=== PATIENT | male | born 2000 | race African-American/Black ===

== ENCOUNTER 2023-03-16 07:37 | Emergency (ER) | payer OTHER, BC, SELFPAY ==
--- NOTE | ~2023-03-16 | XR_ITS ---
XR wrist LT min 3V 03/16/2023 08:26 Indication: Wrist pain Procedure: 4 views left wrist Comparison: No prior studies for comparison. Findings: There is a possible subacute/chronic nondisplaced scaphoid fracture with sclerotic margins. No soft tissue abnormality. No foreign bodies. Impression: 1: Possible subacute/chronic nondisplaced scaphoid waist fracture. Consider correlation with MRI. Reviewed, dictated and finalized at location A. LLIGENCE CLERK Impression: 1: Possible subacute/chronic nondisplaced scaphoid waist fracture. Consider cor relation with MRI.
[2023-03-16 07:40] VITALS: BP 146/89; PULSE 80; RESP 16; TEMP 36.4; O2SAT 98
--- NOTE | 2023-03-16 09:20 | ED.UPPEXIN ---
HPI - Extremity Injury (Upper) General Chief Complaint: Extremity Injury, Upper Stated Complaint: left hand pain Time Seen by Provider: 03/16/23 07:41 History of Present Illness HPI narrative: 22-year-old male presenting to the emergency department for evaluation persistent left wrist pain. Patient reports he was at work a few months ago when he felt a pop in his left wrist. Patient has had follow-up with occupational health and also had follow up with another physician. patient was concerned because he is still having persistent pain in the left wrist. One of the physicians told him that he had carpal tunnel syndrome and another physician told he did not have carpal tunnel syndrome but no explanation for the patient's symptoms were identified. Patient presented to [facility] for a 3rd opinion. Related Data Allergies Allergy/AdvReac Type Severity Reaction Status Date / Time No Known Allergies Allergy Verified 03/16/23 07:52 Review of Systems Review of Systems: All systems reviewed & are unremarkable except as noted in HPI and below Exam Narrative: APPEARANCE: Well appearing, no pain, no distress, well-nourished. HEAD: normocephalic, atraumatic. EYES: PERRLA/EOMI, conjunctivae clear. NOSE: Normal no drainage EARS:TMS clear with good light reflex. THROAT: Pharynx clear, no exudate. NECK: Supple. No adenopathy, no masses. RESPIRATORY: Airway patent, respirations nonlabored. Clear to auscultation bilaterally, no rales, rhonchi, wheezing. CARDIOVASCULAR: Regular rate and rhythm without murmurs rubs or gallops. ABDOMINAL: Soft, nontender, nondistended, normal bowel sounds MUSCULOSKELETAL: tenderness to left wrist, neurovascularly intact NEURO: Alert. Cranial nerves II through XII intact. Grossly intact Course Course Emergency Course: 22-year-old male presents emergency department for evaluation of persistent left wrist pain. X-rays taken today were concerning for scaphoid fracture. Patient family were updated on results of the imaging. Patient was encouraged of close follow-up with his primary care physician and to have an outpatient MRI. All questions and concerns were addressed and they are comfortable with plan for discharge and further outpatient workup. Vital Signs Vital signs: Vital Signs Temperature 97.6 F 03/16/23 07:40 Pulse Rate 80 03/16/23 07:40 Respiratory Rate 16 03/16/23 07:40 Blood Pressure 146/89 H 03/16/23 07:40 Pulse Oximetry 98 03/16/23 07:40 Oxygen Delivery Room Air 03/16/23 07:40 Temperature 97.6 F 03/16/23 07:40 Pulse Rate 75 03/16/23 09:38 Respiratory Rate 18 03/16/23 09:38 Blood Pressure 144/89 H 03/16/23 09:38 Pulse Oximetry 98 03/16/23 09:38 Oxygen Delivery Room Air 03/16/23 07:40 MDM - Extremity Injury (Upper) Imaging Data Radiologist's impression: Impressions Wrist X-Ray 03/16/23 08:31 Impression: 1: Possible subacute/chronic nondisplaced scaphoid waist fracture. Consider correlation with MRI. Discharge Plan Discharge Clinical Impression: Acute wrist pain Patient Disposition: Home, Self-Care Condition: Stable Instructions: Antibiotic Form Additional Instructions: continue to wear your brace for comfort. Your x-ray shows possible subacute/chronic nondisplaced scaphoid waist fracture. radiology recommended an MRI for further workup. Have close follow-up with your primary care physician or Work Comp to have the MRI scheduled. If you need to follow-up with another orthopedic physician have close follow-up with Dr. Ttutle. Follow-up/Referrals: Wing Tuttle MD [Physician] - PHYSICIAN,DIRECTOR AUTOMOTIVE [Primary Care Provider] - Stand Alone Forms: Work/School Release IP
[2023-03-16 09:38] VITALS: BP 144/89; PULSE 75; RESP 18; O2SAT 98
== END 2023-03-16 09:39 | disposition home or self-care (01) ==
PROVIDERS: Emergency Provider Emergency Medicine
DX: M25.532 Pain in left wrist (principal); R93.6 Abnormal findings on diagnostic imaging of limbs
CPT/HCPCS: 73110; 99283

== ENCOUNTER 2023-04-22 13:07 | Outpatient (CLI) | payer OTHER, SELFPAY ==
--- NOTE | ~2023-04-22 | MR_ITS ---
MRI of the left wrist Technique: Coronal T1 weighted and proton density fat sat images, and axial and sagittal proton-densi ty and proton-density fat-sat images were acquired. Clinical History: Pain Findings: Scapholunate ligament is intact, and there is no widening of the scapholunate interval. Ariel otriquetral ligament is intact. TFCC is intact. Bone marrow signals are unremarkable. Joint spaces are preserved. No significant joint effusion or sy novitis. There is a 6 mm ganglion cyst just volar to the scaphoid (sagittal image 23, coronal image 1 0). Extensor tendons are intact. Flexor tendons of the carpal tunnel intact. No other mass lesion or flui d collection seen. IMPRESSION: 6 mm ganglion cyst along the volar aspect of the scaphoid. No other significant findings. Reviewed, dictated and finalized at [facility]. DEPARTMENT BATTALION CHIEF
== END 2023-04-22 13:08 | disposition home or self-care (01) ==
PROVIDERS: Visit Provider Orthopaedic Surgery
DX: M25.532 Pain in left wrist (principal)
CPT/HCPCS: 73221

== ENCOUNTER 2024-04-18 08:13 | Emergency (ER) | payer SELFPAY ==
[2024-04-18] VITALS (9 sets, daily range): BP systolic 103–142; BP diastolic 54–93; PULSE 76–82; RESP 14–16; TEMP 36.5–36.7; O2SAT 98–100
--- NOTE | ~2024-04-18 | CT_ITS ---
CLINICAL INDICATION: Epigastric pain and vomiting COMPARISON: None. TECHNIQUE: Multiple contiguous axial images of the abdomen and pelvis were performed following the ad ministration of with 100 mL Omnipaque-350 intravenous contrast The dose-length product (DLP) was 359.43 mGy-cm. Automated exposure control and iterative reconstruction technique were employed. FINDINGS/OBSERVATIONS: Visualized lower thorax: The bilateral lung bases are clear. The heart is of normal size, without pericardial effusion. Liver: The liver enhances homogeneously and is enlarged measuring 21 cm in longitudinal dimension. Gallbladder and biliary system: The gallbladder is only minimally distended, and otherwise unremarkable. Pancreas: The pancreas enhances homogeneously without ductal dilatation. Pancreatic enlargement, likely unremar kable for patient of this size and age. Spleen: The spleen enhances homogeneously and is not enlarged measuring 10 cm in longitudinal dimension. Kidneys: The bilateral kidneys enhance symmetrically without hydronephrosis or renal calculi. Adrenal glands: Unremarkable. Gastrointestinal tract: Fecal stasis distending the colon and rectum. Mural thickening within the distal stomach and first portion of the duodenum with trace surrounding i nflammatory change is present for which a focal gastroenteritis/duodenitis is suspected. Appendix: Trace free fluid within the right lower quadrant (axial series, image 136 through 143) without additi onal inflammatory change in the cecum. What may be the air-filled appendix is visualized on axial se rae, images 91 - 98. Vasculature: Unremarkable. Lymph nodes: No pathologically enlarged or morphologically suspicious lymph nodes within the retroperitoneum or at the root of the mesentery. Pelvic structures: The bladder is distended, and otherwise unremarkable. The prostate gland is not enlarged. Body wall and musculoskeletal: Small fat-containing umbilical hernia. No significant degenerative disease within the lower thoracic or lumbosacral spine. IMPRESSION: Trace free fluid within the right lower quadrant without additional inflammatory change in the cecum, with possible visualization of what may be the air-filled appendix.. Free fluid in the male patient is never a normal finding. Clinical correlation for the signs and symptoms of acute appendicitis is s uggested. Otherwise, mural thickening with trace surrounding inflammatory change within the distal stomach and proximal duodenum, possibly representing acute gastroenteritis/duodenitis, as detailed above Reviewed, dictated and finalized at location A. DEALER IMPRESSION: Trace free fluid within the right lower quadrant without additional inflammator y change in the cecum, with possible visualization of what may be the air-fille d appendix.. Free fluid in the male patient is never a normal finding. Clinical correlation for the signs and symptoms of acute appendicitis is suggested. Otherwise, mural thickening with trace surrounding inflammatory change within t he distal stomach and proximal duodenum, possibly representing acute gastroente ritis/duodenitis, as detailed above
[2024-04-18] MEDS: SODIUM CHLORIDE 0.9% IV 1,000 ML 999 ML (09:27)
[2024-04-18 09:35] LABS: Basophils Percent Auto 0.4 % (0.2-1.2); Eosinophils Absolute Auto 0.2 K/mm3 (0-0.3); Eosinophils Percent Auto 2.6 % (0-4.4); Hemoglobin 15.1 g/dL (14.0-18.0); Immature Granulocyte Absolute 0.02 K/mm3 (0.00-0.031); Immature Granulocyte Percent A 0.2 % (0-0.5); Lymphocytes Absolute Auto 1.94 K/mm3 (0.9-3.2); Mean Corpuscular HGB Conc 31.5 g/dl (32-36); Mean Corpuscular Hemoglobin 26.4 pg (26-34); Mean Corpuscular Volume 84.1 fl (80-100); Mean Platelet Volume 10.1 fl (7.4-10.4); Monocytes Absolute Auto 0.7 K/mm3 (0.1-0.6); Monocytes Percent Auto 8.3 % (2.6-8.5); Neutrophils Absolute Auto 5.2 K/mm3 (1.3-6.7); Neutrophils Percent Auto 64.5 % (45.5-73.1); Platelet Count Result 195 k/mm3 (150-375); Red Blood Count 5.71 M/mm3 (4.6-6.20); Red Cell Distribution Width 12.8 % (11.5-14.5); White Blood Count 8.1 K/mm3 (4.5-10.0)
[2024-04-18 09:44] LABS: Alanine Aminotransferase 29 U/L (6-50); Albumin Level 4.5 g/dL (3.5-5.1); Alkaline Phosphatase 85 U/L (38-126); Anion Gap 8 mmol/L (4-12); Aspartate Amino Transferase 29 U/L (17-59); Bilirubin,Total 0.5 mg/dL (0.2-1.3); Blood Urea Nitrogen 7 mg/dL (9-20); Calcium 9.3 mg/dL (8.4-10.2); Carbon Dioxide 30 mmol/L (22-30); Chloride 101 mmol/L (98-107); Estimated CRCL calculation 122 ml/min; Estimated Glomerular Filt Rate > 60; Glucose 95 mg/dL (65-110); Lipase 316 U/L (23-300); Potassium 3.9 mmol/L (3.4-5.0); Sodium 139 mmol/L (137-145)
[2024-04-18] MEDS: ONDANSETRON HCL ODT 4 MG TABLET PO (10:36)
--- NOTE | 2024-04-18 11:16 | ED.NAVMDI ---
HPI - Nausea/Vomiting/Diarrhea General Chief complaint: Nausea/Vomiting/Diarrhea Stated complaint: n/v/d Time Seen by Provider: 04/18/24 09:59 Source: patient Mode of arrival: ambulatory Limitations: no limitations History of Present Illness HPI Narrative: This is a 23-year-old male, no significant past medical history, presenting to the emergency department complaining of nausea, vomiting and nonbloody diarrhea for the last 3 days. He states he is unable to keep anything down. He complains of diffuse abdominal pain rated 4/10 described as cramping in greatest in the epigastrium, aggravated by vomiting. He denies any recent travel or known sick contacts. He has no other complaints at this time. Related Data Allergies Allergy/AdvReac Type Severity Reaction Status Date / Time No Known Allergies Allergy Verified 04/29/23 10:45 Review of Systems Review of Systems: All systems reviewed & are unremarkable except as noted in HPI and below PMFSH Past Medical History Medical History No significant past medical history Surgical History Surgical History History of carpal tunnel surgery Family History Family History Father Diabetes mellitus CHF (congestive heart failure) Social History Social History Smoking status: Never smoker Alcohol intake: never Substance use type: does not use Do You Feel Safe in your Home?: Yes Lack of Transportation: No Lack of Food: Never True Current Housing: I Have Housing Concerned About Future Housing: No Difficulty Paying Gas/Electric Bills: No Difficulty Paying for Meds: No Currently Unemployed: No Education: Trade/Vocational Certificate Difficulty w/ Childcare or Family Care: No Living arrangements: with family Occupation/Education: occupation Additional occupation/education comments: [employer] Exam Narrative: GENERAL: Well-developed, well-nourished, and in no acute distress. HEAD: Normocephalic, atraumatic. EYES: PERRLA and EOMI. CHEST: Clear to auscultation. No respiratory distress. No wheezes rales or rhonchi HEART: Regular rate and rhythm. No murmur heard. Normal peripheral pulses. ABDOMEN: Soft, diffusely tender to palpation, greatest in the epigastrium without rebound or guarding, nondistended, normal active bowel sounds. EXTREMITIES: Normal range of motion. No edema. SKIN: Warm, dry, no rash. NEURO: Alert and oriented x3. No focal deficit. Moving all 4 limbs spontaneously PSYCH: Normal mood and affect. Course Course Emergency Course: 10:30 - CBC within normal limits, chemistries unremarkable, aside from a lipase elevation of 316. I had a shared decision-making conversation with the patient; we discussed risks and benefits of imaging of the abdomen. Options discussed included symptomatic management and p.o. challenge, primary care follow-up with delayed imaging verses imaging today. The patient elected imaging today. 13:58 - CT abdomen pelvis demonstrates Trace free fluid within the right lower quadrant without additional inflammatory change in the cecum, with possible visualization of what may be the air-filled appendix. As well as mural thickening with trace surrounding inflammatory change within the distal stomach and proximal duodenum, possibly representing acute gastroenteritis/duodenitis. The patient is able to tolerate p.o. intake and is not tender in the right lower quadrant. I had a shared decision-making conversation with patient. We elected watchful waiting and nausea medications. I recommended a bland diet and follow up with his primary care doctor. I discussed the findings and recommendations with the patient. Discussed return and emergency precautions including signs/symptoms of acute abdomen and intractable vomiting. The patient voiced understanding and agreement with the plan. All questions answered to his satisfaction. Vital Signs Vital signs: Vital Signs Temperature 97.7 F 04/18/24 08:22 Pulse Rate 77 04/18/24 08:22 Respiratory Rate 14 04/18/24 08:22 Blood Pressure 123/82 04/18/24 08:22 Pulse Oximetry 100 04/18/24 08:22 Oxygen Delivery Room Air 04/18/24 08:22 Temperature 98.1 F 04/18/24 14:10 Pulse Rate 82 04/18/24 14:10 Respiratory Rate 15 04/18/24 14:10 Blood Pressure 139/76 04/18/24 14:10 Pulse Oximetry 100 04/18/24 14:10 Oxygen Delivery Room Air 04/18/24 08:22 MDM - Nausea/Vomiting/Diarrhea MDM Narrative Medical decision making narrative: Plan: Labs, imaging, antiemetics, IV fluids, reassess Differential Diagnosis Differential diagnosis: Likely food poisoning, gastroenteritis, dehydration and other (Bowel obstruction, pancreatitis, cholecystitis, other) Lab Data 04/18/24 09:29 04/18/24 09:29 Labs: Lab Results 04/18/24 Range/Units 09:29 WBC 8.1 (4.5-10.0) K/mm3 RBC 5.71 (4.6-6.20) M/mm3 Hgb 15.1 (14.0-18.0) g/dL Hct 48.0 (42.0-52.0) % MCV 84.1 (80-100) fl MCH 26.4 (26-34) pg MCHC 31.5 L (32-36) g/dl RDW 12.8 (11.5-14.5) % Plt Count 195 (150-375) k/mm3 MPV 10.1 (7.4-10.4) fl Immature Gran % (Auto) 0.2 (0-0.5) % Neut % (Auto) 64.5 (45.5-73.1) % Lymph % (Auto) 24.0 (18.3-44.2) % Pennington % (Auto) 8.3 (2.6-8.5) % Eos % (Auto) 2.6 (0-4.4) % Baso % (Auto) 0.4 (0.2-1.2) % Lymph # (Auto) 1.94 (0.9-3.2) K/mm3 Pennington # (Auto) 0.7 H (0.1-0.6) K/mm3 Eos # (Auto) 0.2 (0-0.3) K/mm3 Baso # (Auto) 0.0 (0.0-0.1) K/mm3 Abs Immat Gran (auto) 0.02 (0.00-0.031) K/mm3 Absolute Neuts (auto) 5.2 (1.3-6.7) K/mm3 Absolute Nucleated RBC 0.000 (0.0-0.012) K/mm3 Nucleated RBC % 0.0 (0.0-0.2) % Sodium 139 (137-145) mmol/L Potassium 3.9 (3.4-5.0) mmol/L Chloride 101 (98-107) mmol/L Carbon Dioxide 30 (22-30) mmol/L Anion Gap 8 (4-12) mmol/L BUN 7 L (9-20) mg/dL Creatinine 0.90 (0.7-1.3) mg/dL Estim Creat Clear Calc 122 ml/min Estimated GFR > 60 (59 - ) Glucose 95 (65-110) mg/dL Calcium 9.3 (8.4-10.2) mg/dL Total Bilirubin 0.5 (0.2-1.3) mg/dL AST 29 (17-59) U/L ALT 29 (6-50) U/L Alkaline Phosphatase 85 (38-126) U/L Total Protein 8.0 (6.3-8.2) g/dL Albumin 4.5 (3.5-5.1) g/dL Lipase 316 H (23-300) U/L Discharge Plan Discharge Clinical Impression: Gastroenteritis Nausea and vomiting Qualifiers: Vomiting type: unspecified Qualified Code(s): R11.2 - Nausea with vomiting, unspecified Patient Disposition: Home, Self-Care Condition: Stable Instructions: Antibiotic Form, Gastroenteritis (ED) Additional Instructions: You were seen in the emergency department. Your labs are not concerning for liver or kidney injury, though do demonstrate slightly elevated lipase. A CT scan demonstrated what appears to be a small amount of air in the appendix and some irritation around the stomach. It is possible that these findings are related to early appendicitis verses a viral infection. As discussed, I recommend nausea medications, rest, clear liquids and follow up with the primary care doctor. If you develop severe abdominal pain, abdominal pain with fevers, persistent vomiting, or if you have other emergent concerns for life, limb, or eyesight, return to the emergency department. Patient Language: Portuguese Prescriptions: New ondansetron 4 mg tablet,disintegrating 4 mg PO Q8H PRN (Reason: nausea and vomiting) Qty: 15 0RF Follow-up/Referrals: PHYSICIAN,DISH PERSON [Primary Care Provider] - Satish Ba MD [Physician] - 1 Week Stand Alone Forms: Work/School Release IP Time of Disposition: 14:04
--- OUTSIDE RECORDS SUMMARY | 2024-04-22 10:03 | XMS_ITS | Referral Summary ---
Author Organization [facility] Address [address] [place] [address] Care Team Providers Care Material Preparation Worker Name Role Phone Unavailable Primary Care Provider Unavailabl e Source Comments [facility],non-owned Affiliates and Associated Physician Practices is amultiple site organization consisting of ambulatory clinics and hospital sitesin [place], [place], [place] and [place]. This disclosure is being madepursuant to the Care Everywhere program and may not contain all information available regarding this patient. Last updated 17.[facility] [employer] Immunizations Name Administration Dates Next Due DTAP/HEP B/IPV 03/11/2000 DTAP/IPV 02/17/2004 DTaP VACCINE IM (6wk-6yrs) 04/02/2001,05/21/2000 ,04/16/2000 FLU VACCINE TRI IIV3 SPLIT I M (FLUVIRIN) 01/06/2012 HEP A PEDS 2 DOSE 01/06/2012,09/22/2008 HEP B VACCINE, PED/ADOL 07/02/2000,04/16/2000 HIB-HAEMOPHILUS INFLUENZAE B CONJUGATE VACCINE 07/10/2001,11/10/2000,04/30/2000,03/10 MENINGOCOCAL MENINGITIS 05/20/2006 MENINGOCOCCAL CONJUGATE (MCV4P) 01/06/2012 MMR VACCINE 12/28/2004,04/02/2001 PNEUMOCOCCAL PCV7 CONJ, PEDS 07/10/2001,08/07/19,04/30/2000 POLIO IPV 07/10/2001,12/23/2000 TDAP, HISTORIC VACCINE 01/06/2012 VARICELLA 02/17/2004,12/23/2000 Social History Tobacco Use Types Packs/Day Years Used Date Smoking Tobacco: Never Assessed Sex and Gender Information Value Date Recorded Sex Assigned at Not on file Gender Identity Not on file Sexual Orientation Not on file Last Filed Vital Signs Vital Sign Reading Time Taken Comments Blood Pressure 147/71 01/13/2023 10:04 AM CDT Pulse 71 01/13/2023 10:04 AM CDT Temperature 36.9 ??C (98.5 ??F) 01/13/2023 10:04 AM C DT Respiratory Rate 18 01/13/2023 10:04 AM CDT Oxygen Saturation 99% 01/13/2023 10:04 AM CDT Inhaled Oxygen Concentration - - Weight 83.9 kg (185 lb) 01/13/2023 10:04 AM CDT Height 182.9 cm (6') 01/13/2023 10:04 AM CDT Body Mass Index 25.09 01/13/2023 10:04 AM CDT Plan of Treatment Not on file
--- OUTSIDE RECORDS SUMMARY | 2024-04-22 10:03 | XMS_ITS | Patient Health Summary ---
Author Organization [facility] Address [address] [place] [address] Care Team Providers Care Well Control Instructor Name Role Phone Unavailable Primary Care Provider Unavailabl e Note from [facility],non-owned Affiliates and Associated Physician Practices is amultiple site organization consisting of ambulatory clinics and hospital sitesin [place], [place], [place] and [place]. This disclosure is being madepursuant to the Care Everywhere program and may not contain all information available regarding this patient. Last updated 17.[facility] Immunizations * DTAP/HEP B/IPV(Given 03/11/2000) * DTAP/IPV(Given 02/17/2004) * DTaP VACCINE IM (6wk-6yrs)(Given 04/02/2001, 05/21/2000, 04/16/2000) * FLU VACCINE TRI IIV3 SPLIT IM (FLUVIRIN)(Given 01/06/2012) * HEP A PEDS 2 DOSE(Given 01/06/2012, 09/22/2008) * HEP B VACCINE, PED/ADOL(Given 07/02/2000, 04/16/2000) * HIB-HAEMOPHILUS INFLUENZAE B CONJUGATE VACCINE(Given 07/10/2001, 11/10/2000, 04/30/2000, 03/10/2000) * MENINGOCOCAL MENINGITIS(Given 05/20/2006) * MENINGOCOCCAL CONJUGATE (MCV4P)(Given 01/06/2012) * MMR VACCINE(Given 12/28/2004, 04/02/2001) * PNEUMOCOCCAL PCV7 CONJ, PEDS(Given 07/10/2001, 08/06/2000, 04/30/2000) * POLIO IPV(Given 07/10/2001, 12/23/2000) * TDAP, HISTORIC VACCINE(Given 01/06/2012) * VARICELLA(Given 02/17/2004, 12/23/2000) Social History Tobacco Use Types Packs/Day Years [...] Mass Index 25.09 01/13/2023 10:04 AM CDT Procedures * XR HAND LEFT 3VW OR MORE(Performed 01/13/2023) Performed for Hand pain, left Results * XR HAND LEFT 3VW OR MORE (01/13/2023 10:24 AM CDT) Anatomical Region Laterality Modality Wrist / Hand Radiographic Suzie ging 01/13/2023 10:3 3 AM CDT Impressions 01/13/2023 10:34 AM CDT IMPRESSION: No evidence of fracture. > Interpreting Provider: Kaushal Palacios MD on 01/13/2023 10:34 AM Narrative 01/13/2023 10:34 AM CDT Procedure: XR HAND LEFT 3VW OR MORE ??Exam Date: ??01/13/2023 10:24 AM ?? Location: ??[facility] [place] Indication: M79.642: Pain in left hand Injury Findings: There is no evidence of fracture. The joint spaces are well-maintained. There is no bony destruction. There is normal alignment of the carpal bones. Procedure Note Kaushal Palacios MD - 01/13/2023 Procedure: XR HAND LEFT 3VW OR MORE Exam Date: 01/13/2023 10:24 AM Location: [facility] [place] Indication: M79.642: Pain in left hand Injury Findings: There is no evidence of fracture. The joint spaces are well-maintained. There is no bony destruction. There is normal alignmentof the carpal bones. IMPRESSION: No evidence of fracture. > Interpreting Provider: Kaushal Palacios MD on 01/13/2023 10:34 AM Jacky Almazan PA-C DIAGNOSTIC IMAGING ORDERABLES
--- OUTSIDE RECORDS SUMMARY | 2024-04-22 10:03 | XMS_ITS | Clinical Summary ---
Author Organization [facility] Address [address] [place] [address] Care Team Providers Care Community Health Nurse Staff Name Role Phone Unavailable Primary Care Provider Unavailabl e Source Comments [facility],non-owned Affiliates and Associated Physician Practices is amultiple site organization consisting of ambulatory clinics and hospital sitesin [place], [place], [place] and [place]. This disclosure is being madepursuant to the Care Everywhere program and may not contain all information available regarding this patient. Last updated 17.[facility] [employer] Immunizations Name Administration Dates Next Due DTAP/HEP [...] 01/13/2023 10:04 AM CDT Plan of Treatment Health Maintenance Due Date Last Done Comments HIV SCREENING 12/18/2014 HPV VACCINE (1 - Male 3-dose series) 12/18/2014 HEPATITIS C SCREENING 12/14/2017 DTAP/TDAP/TD VACCINES (7 - Td or Tdap) 01/05/2022 01/06/2012, 02/17/2004, 04/02/2001, Additional history exists COVID-19 VACCINE ( season) 2023 07/25/2020, 06/27/2020 INFLUENZA VACCINE (#1) 2023 01/06/2012 DEPRESSION SCREENING 03/31/2024 ZOSTER VACCINE (1 of 2) 12/18/2049 HEPATITIS B VACCINE Completed 07/02/2000, 04/16/2000, 03/11/2000 HIB VACCINE Completed 07/10/2001, 10/29, 04/30/2000, Additional history exists PNEUMOCOCCAL VACCINE Completed 07/10/2001, 08/06/2000, 04/30/2000 MENINGOCOCCAL VACCINE Aged Out 01/06/2012, 007 No longer eligible based on patient's age to complete this topic MENINGOCOCCAL (Group B) VACCINE Aged Out No longer eligible based on patient's age to complete this topic
== END 2024-04-18 14:15 | disposition home or self-care (01) ==
PROVIDERS: Emergency Medicine; Emergency Provider Preventive Medicine Aerospace Medicine
DX: K52.9 Noninfective gastroenteritis and colitis, unspecified (principal)
CPT/HCPCS: 36415; 74177; 80053; 83690; 85025; 96374; 99284; A9270; J7030; Q9967